=== PATIENT | female | born 1990 | race American Indian/Alaskan Native ===

== ENCOUNTER 2018-06-10 09:30 | Emergency (ER) | payer OTHER ==
[2018-06-10 09:40] VITALS: TEMP 97.9
[2018-06-10] MEDS ORDERED: DiphenhydrAMINE 50 mg/ml Inj IVP STA (09:56)
[2018-06-10] MEDS ORDERED: DiphenhydrAMINE 50 mg/ml Inj ONE (10:11)
--- NOTE | 2018-06-10 10:31 | C.PDOC ---
History Of Present Illness 28 y/o female with a PMHx of eczema presents to the ED complaining of right eye swelling and an itchy rash to the neck and upper extremities for the past few days. Patient denies exposure to any new clothes, lotions, food, or medications. She recalls having similar rash and swelling a few weeks ago, and was treated with Prednisone and Pepcid and discharged home. Otherwise patient denies any nausea, vomiting, chest pain, SOB, cough, fever, or other associated symptoms. Time Seen by Provider: 06/10/18 09:45 Chief Complaint (Nursing): ENT Problem History Per: Patient History/Exam Limitations: None Onset/Duration Of Symptoms: Days Current Symptoms Are (Timing): Still Present Past Medical History Reviewed: Historical Data, Nursing Documentation, Vital Signs Vital Signs: Last Vital Signs Temp 97.9 F 06/10/18 09:36 Pulse 73 06/10/18 09:36 Resp 20 06/10/18 09:36 BP 153/97 H 06/10/18 09:36 Pulse Ox 97 06/10/18 09:36 - Medical History Other PMH: Eczema Family History: States: No Known Family Hx - Social History Hx Alcohol Use: Yes Hx Substance Use: No - Immunization History Hx Tetanus Toxoid Vaccination: No Hx Influenza Vaccination: Yes (01/2018) Hx Pneumococcal Vaccination: No Review Of Systems Except As Marked, All Systems Reviewed And Found Negative. Constitutional: Negative for: Fever, Chills Eyes: Positive for: Eyelid Inflammation (right eye swelling). Negative for: Vision Change, Redness Cardiovascular: Negative for: Chest Pain Respiratory: Negative for: Shortness of Breath, Wheezing Gastrointestinal: Negative for: Nausea, Vomiting Skin: Positive for: Rash (to neck and upper extremities) Neurological: Negative for: Headache, Dizziness Physical Exam - Physical Exam Appears: Non-toxic, No Acute Distress Skin: Warm, Dry, Rash (Erythematous rash over the neck, consistent w/ eczema; +Bright erythematous rash to the bilateral upper extremities with some papules and macules) Head: Atraumatic, Normacephalic Eye(s): bilateral: Normal Inspection (conjunctiva clear), PERRL, EOMI, Eyelid Inflammation (Swelling of right upper and lower eyelid, Swelling of left upper eyelid) Nose: Normal Oral Mucosa: Moist Lips: Normal Appearing, No Swelling Throat: Normal (airway is patent), No Erythema, No Exudate Neck: Normal ROM Chest: Symmetrical Cardiovascular: Rhythm Regular, No Murmur Respiratory: Normal Breath Sounds, No Rhonchi, No Stridor, No Wheezing Extremity: Bilateral: Atraumatic, Normal Color And Temperature Neurological/Psych: Oriented x3, Normal Speech ED Course And Treatment O2 Sat by Pulse Oximetry: 97 Pulse Ox Interpretation: Normal Medical Decision Making Medical Decision Making: Impression: Angioedema Plan: - 125 mg IV Solu-medrol - 20 mg IV Pepcid in NS - 50 mg IV Benadryl - Will monitor patient in the ED and reassess for improvement 11:12 On reassessment, patient reports improvement in swelling and feels better. Plan is to discharge patient home, Rx provided for Benadryl, Pepcid, and Prednisone. Patient advised to follow up with PMD. Disposition Counseled Patient/Family Regarding: Diagnosis, Need For Followup, Rx Given - Disposition Referrals: [facility] [place] [Outside] [facility] [Outside] [facility] [Outside] Disposition: HOME/ ROUTINE Disposition Time: 11:15 Condition: IMPROVED Prescriptions: DiphenhydrAMINE [Benadryl] 25 mg PO Q6 5 Days #20 cap Famotidine [Pepcid] 40 mg PO DAILY #10 tablet Prednisone 50 mg PO DAILY #4 tablet Instructions: Angioedema (DC) Forms: Accompanied To ED By:, [employer] (Greek), School Excuse, Work Excuse - POA Present On Arrival: None - Clinical Impression Clinical Impression: Angioedema - Scribe Statement The provider has reviewed the documentation as recorded by the Lane Garner Provider Attestation: All medical record entries made by the Lane were at my direction and personally dictated by me. I have reviewed the chart and agree that the record accurately reflects my personal performance of the history, physical exam, medical decision making, and the department course for this patient. I have also personally directed, reviewed, and agree with the discharge instructions and disposition.
[2018-06-10 11:29] VITALS: BP 136/82; PULSE 61; RESP 18
[2018-06-10 12:00] VITALS: O2SAT 97
== END 2018-06-10 11:35 | disposition home or self-care (01) ==
LOC: C.ER 09:30
DX: T78.3XXA Angioneurotic edema, initial encounter (principal)
CPT/HCPCS: 96365; 96375; 99284; J1200; J2930